=== PATIENT | female | born 1950 | race Caucasian/White ===

== ENCOUNTER 2017-08-20 09:47 | Inpatient (IN) | payer MEDICARE, OTHER ==
[~2017-08-20] VITALS: Ht 157.5 cm; Wt 96.1 kg
[2017-08-20] MEDS ORDERED: etomidate 2mg/ml inj. ONE (10:00)
[2017-08-20] MEDS ORDERED: sod chloride 0.9% 10ml flush syringe IV ONE (10:00)
[2017-08-20] MEDS ORDERED: acetaminophen 325mg tablet PO STA (10:12)
[2017-08-20] MEDS ORDERED: normal saline 1000ML IV soln IV ONE (10:15)
[2017-08-20 10:46] LABS: BASOPHILS % (AUTO) 0.1 % (0-1); EOSINOPHILS # (AUTO) 0.1 X10'3 (0-0.9); EOSINOPHILS % (AUTO) 0.8 % (0-6); HEMOGLOBIN 15.3 g/dl (12.0-16.0); LYMPHOCYTES # (AUTO) 0.7 X10'3 (1.1-4.8); LYMPHOCYTES % (AUTO) 9.7 % (21-51); MEAN CORPUSCULAR HEMOGLOBIN 28.9 PG (27.0-31.0); MEAN CORPUSCULAR VOLUME 84.8 FL (78-98); MEAN PLATELET VOLUME 9.4 FL (7.4-10.4); MONOCYTES # (AUTO) 0.3 X10'3 (0-0.9); MONOCYTES % (AUTO) 3.7 % (2-12); NEUTROPHILS # (AUTO) 6.6 X10'3 (1.8-7.7); NEUTROPHILS % (AUTO) 85.7 % (42-75); PLATELET COUNT 183 X10'3 (140-440); RED CELL DISTRIBUTION WIDTH 15.4 % (11.5-14.5); WHITE BLOOD COUNT 7.7 X10'3 (4.5-11.0)
[2017-08-20 11:08] LABS: INR 0.9 INR; PROTHROMBIN TIME 9.6 SECONDS (9.0-12.0)
[2017-08-20] MEDS ORDERED: albuterol 2.5 MG/3 ML nebule NEB ONE ×2 (11:10→14:25)
[2017-08-20] MEDS ORDERED: ipratropium/albuterol 3ml nebule NEB ONE (11:10)
[2017-08-20 11:13] LABS: TOTAL CELLS COUNTED 100
[2017-08-20 11:14] LABS: PLATELET ESTIMATE NORMAL
[2017-08-20 11:15] LABS: ALANINE AMINOTRANSFERASE 24 U/L (12-78); ALBUMIN 3.5 G/DL (3.4-5.0); ALBUMIN/GLOBULIN RATIO 0.8 (1.1-1.5); ALKALINE PHOSPHATASE 92 IU/L (46-116); ANION GAP 11 (8-16); ASPARTATE AMINO TRANSFERASE 29 U/L (10-37); BILIRUBIN,TOTAL 0.2 MG/DL (0.1-1.0); BLOOD UREA NITROGEN 11 MG/DL (7-18); BUN/CREATININE RATIO 12.2 (6.6-38.0); CHLORIDE 105 MMOL/L (99-107); GLUCOSE 117 MG/DL (70-104); MAGNESIUM 1.7 MG/DL (1.5-2.4); POTASSIUM 4.1 MMOL/L (3.5-5.1); SODIUM 141 MMOL/L (135-145); TOTAL CARBON DIOXIDE 24.7 MMOL/L (24-32); TOTAL PROTEIN 7.8 G/DL (6.4-8.2); eGFR 63 ML/MIN
[2017-08-20 11:21] LABS: CLARITY,URINE CLOUDY (Clear); COLOR,URINE YELLOW (Yellow); GLUCOSE, URINE NEGATIVE (Neg); KETONES,URINE NEGATIVE (Neg); LEUKOCYTE ESTERASE ,URINE NEGATIVE (Neg); NITRITES, URINE NEGATIVE (Neg); OCCULT BLOOD,URINE MODERATE (Neg); PROTEIN,URINE 30 mg/dl (Neg); UA COLLECTION TYPE CLN CATCH MIDSTREAM; UROBILINOGEN,URINE 0.2 E.U/dL (0.2-1.0)
[2017-08-20 11:31] LABS: BACTERIA,URINE 1+ /HPF (Neg); SQUAMOUS EPITHELIAL CELL,UR FEW /LPF (FEW); WBC,URINE 0-4 /HPF (0-4)
[2017-08-20] MEDS ORDERED: methylPREDNISolone sod succ 125mg/2ml vial IV ONE (13:05)
[2017-08-20] MEDS ORDERED: oseltamivir phos 75mg capsule PO ONE (13:05)
[2017-08-20] MEDS ORDERED: LISI-600 PO (13:08)
[2017-08-20] MEDS ORDERED: ALBU6.7H INH (13:08)
[2017-08-20] MEDS ORDERED: ATOR10TA87 PO (13:08)
[2017-08-20] MEDS ORDERED: IBUP-1984 PO (13:08)
[2017-08-20] MEDS ORDERED: ASPI-611 PO (13:08)
[2017-08-20] MEDS ORDERED: ASCO500C15 PO (13:08)
[2017-08-20] MEDS ORDERED: EST1T PO (13:08)
[2017-08-20] MEDS ORDERED: LISI-604 PO (13:11)
[2017-08-20] MEDS ORDERED: mag hydrox/Alum hydrox/simeth 30ml oral suspension PO PRN (14:20)
[2017-08-20] MEDS ORDERED: magnesium hydroxide 30ml (MOM) UD suspension PO PRN (14:20)
[2017-08-20] MEDS ORDERED: ondansetron/PF 4mg/2ml inj IV PRN (14:20)
[2017-08-20] MEDS: normal saline 1000ml 1,000 ML IV SCH (14:31)
[2017-08-20] MEDS ORDERED: ipratropium/albuterol 3ml nebule NEB PRN (15:05)
[2017-08-20 17:35] VITALS: BP 159/84
[2017-08-20 18:00] VITALS: BP 136/75
[2017-08-20] MEDS: levoFLOXACIN-Levaquin 750MG/D5 150 ML IV SCH (19:07)
[2017-08-20] MEDS ORDERED: oseltamivir phos 75mg capsule PO SCH (20:00)
[2017-08-20] MEDS ORDERED: temazepam 15mg capsule PO PRN (21:00)
[2017-08-20 21:10] LABS: HEMOGLOBIN A1C 5.6 % (4.5-6.2)
[2017-08-20] MEDS: vancomycin inj 1,250 MG in normal saline 250ml IV soln 250 ML IV SCH (21:28)
[2017-08-20] MEDS: acetaminophen 325mg tablet PO PRN (21:38)
[2017-08-20 22:00] VITALS: BP 146/71
[2017-08-21] VITALS (19 sets, daily range): BP systolic 89–178; BP diastolic 51–92
[2017-08-21] MEDS: acetaminophen 325mg tablet PO PRN (03:35)
[2017-08-21] MEDS: vancomycin inj 1,250 MG in normal saline 250ml IV soln 250 ML IV SCH (05:15)
[2017-08-21] MEDS: normal saline 1000ml 1,000 ML IV SCH ×3 (05:15→19:41)
[2017-08-21 05:56] LABS: BASOPHILS % (AUTO) 0 % (0-1); EOSINOPHILS % (AUTO) 0 % (0-6); HEMATOCRIT 41.1 % (35.0-45.0); HEMOGLOBIN 14.1 g/dl (12.0-16.0); LYMPHOCYTES # (AUTO) 0.7 X10'3 (1.1-4.8); LYMPHOCYTES % (AUTO) 11.3 % (21-51); MEAN CORPUSCULAR HEMOGLOBIN 29.2 PG (27.0-31.0); MEAN CORPUSCULAR HGB CONC 34.2 % (33.0-36.5); MEAN CORPUSCULAR VOLUME 85.3 FL (78-98); MEAN PLATELET VOLUME 9.4 FL (7.4-10.4); MONOCYTES # (AUTO) 0.3 X10'3 (0-0.9); MONOCYTES % (AUTO) 4.7 % (2-12); NEUTROPHILS # (AUTO) 5.4 X10'3 (1.8-7.7); PLATELET COUNT 172 X10'3 (140-440); RED BLOOD COUNT 4.81 X10'6 (4.20-5.60); RED CELL DISTRIBUTION WIDTH 15.2 % (11.5-14.5); WHITE BLOOD COUNT 6.4 X10'3 (4.5-11.0)
[2017-08-21 06:08] LABS: PARTIAL THROMBOPLASTIN TIME 32 SECONDS (22-32); PROTHROMBIN TIME 9.9 SECONDS (9.0-12.0)
[2017-08-21 06:27] LABS: ALANINE AMINOTRANSFERASE 26 U/L (12-78); ALBUMIN 2.9 G/DL (3.4-5.0); ALBUMIN/GLOBULIN RATIO 0.8 (1.1-1.5); ALKALINE PHOSPHATASE 72 IU/L (46-116); ANION GAP 11 (8-16); ASPARTATE AMINO TRANSFERASE 24 U/L (10-37); BILIRUBIN,TOTAL 0.2 MG/DL (0.1-1.0); BLOOD UREA NITROGEN 13 MG/DL (7-18); CALCIUM 8.4 MG/DL (8.5-10.1); CHLORIDE 108 MMOL/L (99-107); CREATININE 0.81 MG/DL (0.40-0.90); GLUCOSE 140 MG/DL (70-104); MAGNESIUM 1.9 MG/DL (1.5-2.4); PHOSPHORUS 3.3 MG/DL (2.3-4.5); SODIUM 145 MMOL/L (135-145); TOTAL CARBON DIOXIDE 25.7 MMOL/L (24-32); TOTAL PROTEIN 6.7 G/DL (6.4-8.2); eGFR 71 ML/MIN
[2017-08-21] MEDS: lisinopril 5mg tablet PO SCH (07:47)
[2017-08-21] MEDS: atorvastatin 10mg tablet PO SCH (07:47)
[2017-08-21] MEDS: aspirin 81mg tablet.DR PO SCH (07:47)
[2017-08-21] MEDS: ascorbic acid 500mg tablet PO SCH (07:48)
[2017-08-21] MEDS: enoxaparin 40mg/0.4ml syringe SUBCUT SCH (07:48)
[2017-08-21] MEDS ORDERED: midazolam 2 mg/2 ml injection ONE (09:40)
[2017-08-21] MEDS ORDERED: propofol 1000mg/100ml bottle 100 ML IV ONE (09:56)
[2017-08-21] MEDS ORDERED: pneumococcal 23-VAL P-sac vacc 25 mcg/0.5ml vial IMVAC ONE (10:00)
[2017-08-21 10:31] LABS: ABG BASE EXCESS -11.5 mmol/L (-2.0-3.0); ABG HCO3 18.5 mmol/L (22.0-26.0); ABG PCO2 (T) 63.2 mmHg (32.0-45.0); ABG PH (T) 7.085 (7.350-7.450); ABG PO2 (T) 164.3 mmHg (83-108); ALLEN'S TEST Positive; FCOHb 0.2 % (0.5-1.5); FMetHb 0.4 % (0.3-1.12); FO2Hb 97.4 % (94-100); TOTAL HEMOGLOBIN 10.8 G/dl (12.0-16.0)
[2017-08-21] MEDS ORDERED: sodium bicarbonate (8.4%) 1 mEq/ml syringe IV STA (10:31)
[2017-08-21] MEDS ORDERED: sodium bicarbonate (8.4%) 1 mEq/ml syringe ONE (10:33)
[2017-08-21] MEDS: levoFLOXACIN-Levaquin 750MG/D5 150 ML IV SCH (10:55)
[2017-08-21] MEDS: ipratropium/albuterol 3ml nebule NEB SCH ×4 (10:56→23:19)
[2017-08-21] MEDS: midazolam 100mg in NS 100ml 100 ML IV PRN ×2 (10:57→22:10)
[2017-08-21] MEDS: FENTANYL-0.9 % NACL/PF 100 ML IV PRN ×3 (10:58→22:07)
[2017-08-21] MEDS ORDERED: normal saline 1000ml 1,000 ML IV ONE (13:15)
[2017-08-21 14:05] LABS: TROPONIN I 0.22 NG/ML (0.0-0.05)
[2017-08-21] MEDS: pantoprazole 40 MG vial IV SCH (14:31)
[2017-08-21] MEDS: methylPREDNISolone sod succ 125mg/2ml vial IV SCH ×2 (14:31→19:39)
[2017-08-21] MEDS ORDERED: albumin (human) 25% 100 ML IV solution IV ONE (15:30)
[2017-08-21 16:01] LABS: ABG HCO3 25.4 mmol/L (22.0-26.0); ABG OXYGEN SATURATION 96.8 % (95-98); ABG PCO2 (T) 43.7 mmHg (32.0-45.0); ABG PH (T) 7.381 (7.350-7.450); ABG PO2 (T) 90.1 mmHg (83-108); ALLEN'S TEST Positive; FCOHb 0.3 % (0.5-1.5); FMetHb 0.1 % (0.3-1.12); FO2Hb 96.4 % (94-100); MINUTE VOLUME 8 L/min; PATIENT TEMPERATURE 36.6; PEEP 5 cm H2O; RESPIRATORY RATE 20 b/min; RESPIRATORY RATE (OBSERVED) 20 b/min; TIDAL VOLUME 400 mL; TOTAL HEMOGLOBIN 13.9 G/dl (12.0-16.0)
[2017-08-21] MEDS: lactobacillus rhamnosus 10,000 MMU CELLS/CAPSULE PO SCH (18:04)
[2017-08-21] MEDS ORDERED: vancomycin inj 1,250 MG in normal saline 250ml IV soln 250 ML IV SCH (20:00)
[2017-08-22] VITALS (23 sets, daily range): BP systolic 90–131; BP diastolic 50–95
[2017-08-22 01:15] LABS: BASOPHILS % (AUTO) 0 % (0-1); EOSINOPHILS % (AUTO) 0 % (0-6); HEMATOCRIT 37.2 % (35.0-45.0); HEMOGLOBIN 12.7 g/dl (12.0-16.0); LYMPHOCYTES # (AUTO) 0.5 X10'3 (1.1-4.8); LYMPHOCYTES % (AUTO) 4.2 % (21-51); MEAN CORPUSCULAR HEMOGLOBIN 29.2 PG (27.0-31.0); MEAN CORPUSCULAR HGB CONC 34.2 % (33.0-36.5); MEAN CORPUSCULAR VOLUME 85.5 FL (78-98); MEAN PLATELET VOLUME 9.7 FL (7.4-10.4); MONOCYTES # (AUTO) 0.4 X10'3 (0-0.9); MONOCYTES % (AUTO) 3.4 % (2-12); NEUTROPHILS # (AUTO) 10.7 X10'3 (1.8-7.7); NEUTROPHILS % (AUTO) 92.4 % (42-75); PLATELET COUNT 166 X10'3 (140-440); RED BLOOD COUNT 4.36 X10'6 (4.20-5.60); RED CELL DISTRIBUTION WIDTH 14.4 % (11.5-14.5); WHITE BLOOD COUNT 11.6 X10'3 (4.5-11.0)
[2017-08-22 01:36] LABS: ALANINE AMINOTRANSFERASE 25 U/L (12-78); ALBUMIN/GLOBULIN RATIO 0.9 (1.1-1.5); ALKALINE PHOSPHATASE 58 IU/L (46-116); ANION GAP 11 (8-16); ASPARTATE AMINO TRANSFERASE 27 U/L (10-37); BILIRUBIN,TOTAL 0.3 MG/DL (0.1-1.0); BLOOD UREA NITROGEN 19 MG/DL (7-18); BUN/CREATININE RATIO 17.9 (6.6-38.0); CALCIUM 7.6 MG/DL (8.5-10.1); CHLORIDE 112 MMOL/L (99-107); CREATININE 1.06 MG/DL (0.40-0.90); GLUCOSE 172 MG/DL (70-104); MAGNESIUM 1.7 MG/DL (1.5-2.4); PHOSPHORUS 3.4 MG/DL (2.3-4.5); POTASSIUM 3.5 MMOL/L (3.5-5.1); SODIUM 148 MMOL/L (135-145); TOTAL CARBON DIOXIDE 24.9 MMOL/L (24-32); TOTAL PROTEIN 6.2 G/DL (6.4-8.2); eGFR 52 ML/MIN
[2017-08-22 01:43] LABS: TROPONIN I 0.55 NG/ML (0.0-0.05)
[2017-08-22] MEDS: methylPREDNISolone sod succ 125mg/2ml vial IV SCH ×4 (02:33→19:45)
[2017-08-22] MEDS: FENTANYL-0.9 % NACL/PF 100 ML IV PRN ×2 (02:34→15:07)
[2017-08-22] MEDS ORDERED: dextrose 5%-water 1,000 ML IV SCH (02:43)
[2017-08-22] MEDS: ipratropium/albuterol 3ml nebule NEB SCH ×6 (03:15→23:09)
[2017-08-22 04:06] LABS: ABG BASE EXCESS -3.2 mmol/L (-2.0-3.0); ABG HCO3 23.6 mmol/L (22.0-26.0); ABG OXYGEN SATURATION 94.1 % (95-98); ABG PCO2 (T) 48.9 mmHg (32.0-45.0); ABG PH (T) 7.301 (7.350-7.450); ABG PO2 (T) 75.9 mmHg (83-108); ALLEN'S TEST Positive; FCOHb 0.3 % (0.5-1.5); FMetHb 0.2 % (0.3-1.12); FO2Hb 93.6 % (94-100); MINUTE VOLUME 9 L/min; PATIENT TEMPERATURE 36.8; PEEP 5 cm H2O; RESPIRATORY RATE 20 b/min; RESPIRATORY RATE (OBSERVED) 21 b/min; TIDAL VOLUME 400 mL; TOTAL HEMOGLOBIN 13.4 G/dl (12.0-16.0)
[2017-08-22 05:30] LABS: PARTIAL THROMBOPLASTIN TIME 30 SECONDS (22-32)
[2017-08-22] MEDS ORDERED: VANCOMYCIN LEVEL IV NR (05:30)
[2017-08-22] MEDS ORDERED: VANCOMYCIN LEVEL IV ONE (07:30)
[2017-08-22] MEDS: lisinopril 5mg tablet PO SCH (08:00)
[2017-08-22] MEDS: aspirin 81mg tablet.DR PO SCH (08:37)
[2017-08-22] MEDS: atorvastatin 10mg tablet PO SCH (08:37)
[2017-08-22] MEDS: pantoprazole 40 MG vial IV SCH (08:37)
[2017-08-22] MEDS: levoFLOXACIN-Levaquin 750MG/D5 150 ML IV SCH (08:37)
[2017-08-22] MEDS: lactobacillus rhamnosus 10,000 MMU CELLS/CAPSULE PO SCH ×2 (08:37→17:33)
[2017-08-22] MEDS: ascorbic acid 500mg tablet PO SCH (08:37)
[2017-08-22] MEDS: enoxaparin 40mg/0.4ml syringe SUBCUT SCH (08:38)
[2017-08-22] MEDS ORDERED: glucagon, human recombinant 1mg kit SUBCUT PRN (11:20)
[2017-08-22] MEDS ORDERED: dextrose 50%-water 50ml dispensing syringe IV PRN ×2 (11:20)
[2017-08-22] MEDS ORDERED: MESSAGE TO PHARMACY PO ONE (11:20)
[2017-08-22] MEDS ORDERED: dextrose ORAL solution 15 GM/59 ML bottle PO PRN ×2 (11:20)
[2017-08-22] MEDS: dexmedetomidin/NS 400mcg/100ml 100 ML IV SCH (15:01)
[2017-08-22] MEDS: mineral oil/petrolatum ophthal oint EACHEYE SCH ×2 (15:02→19:45)
[2017-08-22] MEDS: acetaminophen 325mg tablet PO PRN (19:17)
[2017-08-22 21:05] LABS: COLOR,URINE YELLOW (Yellow); GLUCOSE, URINE NEGATIVE (Neg); KETONES,URINE NEGATIVE (Neg); LEUKOCYTE ESTERASE ,URINE NEGATIVE (Neg); NITRITES, URINE NEGATIVE (Neg); OCCULT BLOOD,URINE LARGE (Neg); PROTEIN,URINE 30 mg/dl (Neg); UROBILINOGEN,URINE 0.2 E.U/dL (0.2-1.0)
[2017-08-22 21:08] LABS: UA COLLECTION TYPE FOLEY CATH
[2017-08-22 21:09] LABS: CLARITY,URINE SLIGHTLY CLOUDY (Clear)
[2017-08-22 21:12] LABS: BACTERIA,URINE FEW /HPF (Neg); RBC,URINE 50-100 /HPF (0-2); WBC,URINE NONE SEEN /HPF (0-4)
[2017-08-22 21:13] LABS: AMORPHOUS URATES 4+; HYALINE CASTS 0-3 /LPF (NEGATIVE); MUCUS STRANDS NONE SEEN /LPF (Neg); SQUAMOUS EPITHELIAL CELL,UR FEW /LPF (FEW); TRANSITIONAL EPI CELLS,URINE FEW /HPF
[2017-08-22 21:14] LABS: FINE GRANULAR CAST 0-3 /LPF (NEGATIVE)
[2017-08-22] MEDS: insulin glargine (Lantus) pen - multi-dose SQ SCH (21:42)
[2017-08-22] MEDS: insulin regular, human vial - multi-dose SQ SCH (21:44)
[2017-08-22] MEDS ORDERED: furosemide 40mg/4ml inj IV ONE (23:10)
[2017-08-22] MEDS: sodium chloride 0.45% 1,000 ML IV SCH (23:14)
[2017-08-23] VITALS (22 sets, daily range): BP systolic 111–157; BP diastolic 60–85
[2017-08-23] MEDS: mineral oil/petrolatum ophthal oint EACHEYE SCH ×4 (01:14→20:00)
[2017-08-23] MEDS: methylPREDNISolone sod succ 125mg/2ml vial IV SCH ×4 (01:18→20:11)
[2017-08-23] MEDS: insulin regular, human vial - multi-dose SQ SCH ×3 (03:03→20:32)
[2017-08-23] MEDS: ipratropium/albuterol 3ml nebule NEB SCH ×6 (03:20→22:56)
[2017-08-23 03:37] LABS: ABG BASE EXCESS 0.5 mmol/L (-2.0-3.0); ABG HCO3 25.9 mmol/L (22.0-26.0); ABG OXYGEN SATURATION 95.6 % (95-98); ABG PCO2 (T) 45.2 mmHg (32.0-45.0); ABG PH (T) 7.377 (7.350-7.450); ABG PO2 (T) 82.1 mmHg (83-108); ALLEN'S TEST Positive; FCOHb 0.3 % (0.5-1.5); FMetHb 0.3 % (0.3-1.12); MINUTE VOLUME 14 L/min; PATIENT TEMPERATURE 37.2; PEEP 5 cm H2O; RESPIRATORY RATE 20 b/min; RESPIRATORY RATE (OBSERVED) 28 b/min; TIDAL VOLUME 400 mL
[2017-08-23] MEDS: dexmedetomidin/NS 400mcg/100ml 100 ML IV SCH ×3 (04:08→23:15)
[2017-08-23 05:20] LABS: BASOPHILS % (AUTO) 0 % (0-1); EOSINOPHILS # (AUTO) 0.1 X10'3 (0-0.9); EOSINOPHILS % (AUTO) 0.4 % (0-6); HEMATOCRIT 36.5 % (35.0-45.0); HEMOGLOBIN 12.2 g/dl (12.0-16.0); LYMPHOCYTES # (AUTO) 0.5 X10'3 (1.1-4.8); LYMPHOCYTES % (AUTO) 4.2 % (21-51); MEAN CORPUSCULAR HEMOGLOBIN 28.7 PG (27.0-31.0); MEAN CORPUSCULAR HGB CONC 33.3 % (33.0-36.5); MEAN CORPUSCULAR VOLUME 86.2 FL (78-98); MEAN PLATELET VOLUME 9.7 FL (7.4-10.4); MONOCYTES # (AUTO) 0.5 X10'3 (0-0.9); MONOCYTES % (AUTO) 4.1 % (2-12); NEUTROPHILS # (AUTO) 11.1 X10'3 (1.8-7.7); NEUTROPHILS % (AUTO) 91.3 % (42-75); PLATELET COUNT 173 X10'3 (140-440); RED BLOOD COUNT 4.24 X10'6 (4.20-5.60); RED CELL DISTRIBUTION WIDTH 15.9 % (11.5-14.5); WHITE BLOOD COUNT 12.1 X10'3 (4.5-11.0)
[2017-08-23 05:24] LABS: INR 0.9 INR; PARTIAL THROMBOPLASTIN TIME 30 SECONDS (22-32); PROTHROMBIN TIME 9.8 SECONDS (9.0-12.0)
[2017-08-23 05:30] LABS: ALANINE AMINOTRANSFERASE 22 U/L (12-78); ALBUMIN 2.8 G/DL (3.4-5.0); ALBUMIN/GLOBULIN RATIO 0.8 (1.1-1.5); ALKALINE PHOSPHATASE 58 IU/L (46-116); ANION GAP 10 (8-16); ASPARTATE AMINO TRANSFERASE 23 U/L (10-37); BILIRUBIN,TOTAL 0.3 MG/DL (0.1-1.0); CALCIUM 8.1 MG/DL (8.5-10.1); CHLORIDE 107 MMOL/L (99-107); CREATININE 1.15 MG/DL (0.40-0.90); GLUCOSE 191 MG/DL (70-104); PHOSPHORUS 2.3 MG/DL (2.3-4.5); SODIUM 144 MMOL/L (135-145); TOTAL CARBON DIOXIDE 26.8 MMOL/L (24-32); TOTAL PROTEIN 6.2 G/DL (6.4-8.2); eGFR 47 ML/MIN
[2017-08-23 05:56] LABS: BLOOD UREA NITROGEN 25 MG/DL (7-18); BUN/CREATININE RATIO 21.7 (6.6-38.0)
[2017-08-23 06:27] LABS: POTASSIUM 2.9 MMOL/L (3.5-5.1)
[2017-08-23] MEDS ORDERED: potassium Cl 20 mEq SR tablet PO PRN ×2 (06:30)
[2017-08-23] MEDS ORDERED: potassium Cl 40MEQ/NS 500ml 500 ML IV PRN (06:30)
[2017-08-23] MEDS ORDERED: magnesium 2GM in 50ml NS 50 ML IV PRN (06:30)
[2017-08-23] MEDS ORDERED: potassium Cl 40MEQ/250ML bag 250 ML IV PRN ×2 (06:30)
[2017-08-23] MEDS ORDERED: magnesium Cl slow-release 64mg tablet PO PRN (06:30)
[2017-08-23] MEDS ORDERED: magnesium 4gm in 100ml NS 100 ML IV PRN (06:30)
[2017-08-23] MEDS: potassium Cl 40MEQ/NS 500ml 500 ML IV PRN ×2 (07:28→11:45)
[2017-08-23] MEDS: K and/or MAG REPLACEMENT MC SCH (08:00)
[2017-08-23] MEDS: enoxaparin 40mg/0.4ml syringe SUBCUT SCH (08:05)
[2017-08-23] MEDS: pantoprazole 40 MG vial IV SCH (08:05)
[2017-08-23] MEDS: lactobacillus rhamnosus 10,000 MMU CELLS/CAPSULE PO SCH ×2 (08:06→20:10)
[2017-08-23] MEDS: aspirin 81mg tablet.DR PO SCH (08:06)
[2017-08-23] MEDS: ascorbic acid 500mg tablet PO SCH (08:06)
[2017-08-23] MEDS: atorvastatin 10mg tablet PO SCH (08:06)
[2017-08-23] MEDS: lisinopril 5mg tablet PO SCH (08:08)
[2017-08-23] MEDS: levoFLOXACIN-Levaquin 750MG/D5 150 ML IV SCH (08:23)
[2017-08-23] MEDS ORDERED: methylnaltrexone br 12mg/0.6ml inj***SubQ only SQ ONE (11:15)
[2017-08-23] MEDS ORDERED: docusate sod 100mg capsule PO SCH (11:20)
[2017-08-23] MEDS ORDERED: bisacodyl 10mg suppository rectal RC PRN (11:20)
[2017-08-23] MEDS: docusate sodium 100mg/10ml UD cup PO SCH (12:17)
[2017-08-23] MEDS: sodium chloride 0.45% 1,000 ML IV SCH (19:06)
[2017-08-23] MEDS: insulin glargine (Lantus) pen - multi-dose SQ SCH (20:32)
[2017-08-24] VITALS (24 sets, daily range): BP systolic 79–196; BP diastolic 47–128
[2017-08-24] MEDS ORDERED: VANCOMYCIN LEVEL IV ONE (00:30)
[2017-08-24] MEDS: sodium chloride 0.45% 1,000 ML IV SCH (01:43)
[2017-08-24] MEDS: mineral oil/petrolatum ophthal oint EACHEYE SCH ×4 (01:45→20:37)
[2017-08-24] MEDS: methylPREDNISolone sod succ 125mg/2ml vial IV SCH ×4 (01:45→20:37)
[2017-08-24 01:54] LABS: BASOPHILS % (AUTO) 0.3 % (0-1); EOSINOPHILS % (AUTO) 0 % (0-6); HEMATOCRIT 36.4 % (35.0-45.0); HEMOGLOBIN 12.2 g/dl (12.0-16.0); LYMPHOCYTES # (AUTO) 0.6 X10'3 (1.1-4.8); LYMPHOCYTES % (AUTO) 4.9 % (21-51); MEAN CORPUSCULAR HEMOGLOBIN 28.8 PG (27.0-31.0); MEAN CORPUSCULAR HGB CONC 33.4 % (33.0-36.5); MEAN PLATELET VOLUME 10.2 FL (7.4-10.4); MONOCYTES # (AUTO) 0.7 X10'3 (0-0.9); MONOCYTES % (AUTO) 5.7 % (2-12); NEUTROPHILS # (AUTO) 11.6 X10'3 (1.8-7.7); NEUTROPHILS % (AUTO) 89.1 % (42-75); PLATELET COUNT 177 X10'3 (140-440); RED BLOOD COUNT 4.24 X10'6 (4.20-5.60); RED CELL DISTRIBUTION WIDTH 14.7 % (11.5-14.5); WHITE BLOOD COUNT 12.9 X10'3 (4.5-11.0)
[2017-08-24 02:03] LABS: INR 0.9 INR; PROTHROMBIN TIME 9.7 SECONDS (9.0-12.0)
[2017-08-24 02:09] LABS: ALANINE AMINOTRANSFERASE 33 U/L (12-78); ALBUMIN 2.6 G/DL (3.4-5.0); ALBUMIN/GLOBULIN RATIO 0.8 (1.1-1.5); ALKALINE PHOSPHATASE 58 IU/L (46-116); ANION GAP 8 (8-16); ASPARTATE AMINO TRANSFERASE 38 U/L (10-37); BILIRUBIN,TOTAL 0.3 MG/DL (0.1-1.0); BLOOD UREA NITROGEN 25 MG/DL (7-18); BUN/CREATININE RATIO 27.2 (6.6-38.0); CALCIUM 8.2 MG/DL (8.5-10.1); CHLORIDE 108 MMOL/L (99-107); CREATININE 0.92 MG/DL (0.40-0.90); GLUCOSE 172 MG/DL (70-104); MAGNESIUM 2.2 MG/DL (1.5-2.4); PHOSPHORUS 2.6 MG/DL (2.3-4.5); POTASSIUM 3.6 MMOL/L (3.5-5.1); PREALBUMIN 16.5 MG/DL (19-36); SODIUM 141 MMOL/L (135-145); TOTAL CARBON DIOXIDE 24.8 MMOL/L (24-32); TOTAL PROTEIN 5.8 G/DL (6.4-8.2); eGFR 61 ML/MIN
[2017-08-24 02:11] LABS: VANCOMYCIN,TROUGH 24.1 UG/ML (6.0-14.0)
[2017-08-24] MEDS: insulin regular, human vial - multi-dose SQ SCH ×2 (02:20→21:05)
[2017-08-24] MEDS: ipratropium/albuterol 3ml nebule NEB SCH ×5 (02:58→20:31)
[2017-08-24 03:16] LABS: ABG HCO3 23.9 mmol/L (22.0-26.0); ABG OXYGEN SATURATION 95.2 % (95-98); ABG PH (T) 7.392 (7.350-7.450); ABG PO2 (T) 77.8 mmHg (83-108); ALLEN'S TEST Positive; FCOHb 0.3 % (0.5-1.5); FMetHb 0.1 % (0.3-1.12); FO2Hb 94.8 % (94-100); MINUTE VOLUME 12 L/min; PATIENT TEMPERATURE 36.8; PEEP 5 cm H2O; RESPIRATORY RATE (OBSERVED) 28 b/min
[2017-08-24] MEDS: levoFLOXACIN-Levaquin 750MG/D5 150 ML IV SCH (07:55)
[2017-08-24] MEDS: lactobacillus rhamnosus 10,000 MMU CELLS/CAPSULE PO SCH ×2 (07:55→17:30)
[2017-08-24] MEDS: docusate sodium 100mg/10ml UD cup PO SCH ×2 (08:00→20:00)
[2017-08-24] MEDS: K and/or MAG REPLACEMENT MC SCH (08:00)
[2017-08-24] MEDS: pantoprazole 40 MG vial IV SCH (08:01)
[2017-08-24] MEDS: aspirin 81mg tablet.DR PO SCH (08:05)
[2017-08-24] MEDS: atorvastatin 10mg tablet PO SCH (08:05)
[2017-08-24] MEDS: enoxaparin 40mg/0.4ml syringe SUBCUT SCH (08:05)
[2017-08-24] MEDS: ascorbic acid 500mg tablet PO SCH (08:06)
[2017-08-24] MEDS: lisinopril 5mg tablet PO SCH (08:06)
[2017-08-24] MEDS: vancomycin inj 1,250 MG in normal saline 250ml IV soln 250 ML IV SCH ×2 (09:00→20:37)
[2017-08-24] MEDS ORDERED: ipratropium/albuterol 3ml nebule NEB PRN (09:40)
[2017-08-24] MEDS ORDERED: racepinephrine 11.25mg/0.5ml nebule NEB PRN (09:40)
[2017-08-24] MEDS ORDERED: pneumococcal 23-VAL P-sac vacc 25 mcg/0.5ml vial IMVAC ONE (11:50)
[2017-08-24] MEDS ORDERED: DIAZ5TAB PO (14:11)
[2017-08-24] MEDS: LORazepam 1 MG tablet PO PRN (14:41)
[2017-08-24] MEDS: dexmedetomidin/NS 400mcg/100ml 100 ML IV SCH (15:18)
[2017-08-24] MEDS ORDERED: morphine 4 MG/ML inj SYRINge IV ONE (15:35)
[2017-08-24] MEDS ORDERED: MIDAZolam 5mg/ml 2ml vial ONE (15:59)
[2017-08-24] MEDS ORDERED: MIDAZolam 5mg/ml 2ml vial IV ONE (17:00)
[2017-08-24] MEDS ORDERED: etomidate 2mg/ml inj. IV ONE (17:00)
[2017-08-24 17:21] LABS: ABG BASE EXCESS -4.9 mmol/L (-2.0-3.0); ABG HCO3 23.2 mmol/L (22.0-26.0); ABG OXYGEN SATURATION 96.5 % (95-98); ABG PCO2 (T) 56.3 mmHg (32.0-45.0); ABG PH (T) 7.233 (7.350-7.450); ABG PO2 (T) 103.8 mmHg (83-108); ALLEN'S TEST Positive; FCOHb 0.3 % (0.5-1.5); FMetHb 0.3 % (0.3-1.12); FO2Hb 95.9 % (94-100); MINUTE VOLUME 13 L/min; PEEP 5 cm H2O; RESPIRATORY RATE 18 b/min; TIDAL VOLUME 400 mL; TOTAL HEMOGLOBIN 13.5 G/dl (12.0-16.0)
[2017-08-24] MEDS ORDERED: normal saline 1000ml 1,000 ML IV ONE (17:45)
[2017-08-24] MEDS: insulin glargine (Lantus) pen - multi-dose SQ SCH ×2 (21:00→21:42)
[2017-08-25] VITALS (24 sets, daily range): BP systolic 104–152; BP diastolic 59–110
[2017-08-25] MEDS: insulin regular, human vial - multi-dose SQ SCH ×4 (02:08→21:08)
[2017-08-25] MEDS: mineral oil/petrolatum ophthal oint EACHEYE SCH ×4 (02:10→14:50)
[2017-08-25] MEDS: methylPREDNISolone sod succ 125mg/2ml vial IV SCH ×2 (02:11→07:19)
[2017-08-25] MEDS: ipratropium/albuterol 3ml nebule NEB SCH ×4 (02:34→20:30)
[2017-08-25 04:06] LABS: ABG BASE EXCESS -2.5 mmol/L (-2.0-3.0); ABG HCO3 23.7 mmol/L (22.0-26.0); ABG OXYGEN SATURATION 96.9 % (95-98); ABG PCO2 (T) 46.5 mmHg (32.0-45.0); ABG PH (T) 7.326 (7.350-7.450); ALLEN'S TEST Positive; FCOHb 0.3 % (0.5-1.5); FMetHb 0.2 % (0.3-1.12); FO2Hb 96.4 % (94-100); MINUTE VOLUME 11 L/min; PEEP 5 cm H2O; RESPIRATORY RATE 18 b/min; RESPIRATORY RATE (OBSERVED) 27 b/min; TIDAL VOLUME 400 mL; TOTAL HEMOGLOBIN 13.1 G/dl (12.0-16.0)
[2017-08-25 06:49] LABS: BASOPHILS % (AUTO) 0 % (0-1); EOSINOPHILS % (AUTO) 0 % (0-6); HEMATOCRIT 36.5 % (35.0-45.0); HEMOGLOBIN 12.2 g/dl (12.0-16.0); LYMPHOCYTES # (AUTO) 0.8 X10'3 (1.1-4.8); LYMPHOCYTES % (AUTO) 4.8 % (21-51); MEAN CORPUSCULAR HEMOGLOBIN 28.9 PG (27.0-31.0); MEAN CORPUSCULAR HGB CONC 33.5 % (33.0-36.5); MEAN CORPUSCULAR VOLUME 86.1 FL (78-98); MEAN PLATELET VOLUME 9.9 FL (7.4-10.4); MONOCYTES % (AUTO) 5.9 % (2-12); NEUTROPHILS # (AUTO) 14.4 X10'3 (1.8-7.7); NEUTROPHILS % (AUTO) 89.3 % (42-75); PLATELET COUNT 179 X10'3 (140-440); RED BLOOD COUNT 4.24 X10'6 (4.20-5.60); RED CELL DISTRIBUTION WIDTH 15.8 % (11.5-14.5); WHITE BLOOD COUNT 16.1 X10'3 (4.5-11.0)
[2017-08-25 07:14] LABS: ALANINE AMINOTRANSFERASE 39 U/L (12-78); ALBUMIN 2.4 G/DL (3.4-5.0); ALBUMIN/GLOBULIN RATIO 0.8 (1.1-1.5); ALKALINE PHOSPHATASE 60 IU/L (46-116); ANION GAP 10 (8-16); ASPARTATE AMINO TRANSFERASE 38 U/L (10-37); BILIRUBIN,TOTAL 0.3 MG/DL (0.1-1.0); BLOOD UREA NITROGEN 33 MG/DL (7-18); CALCIUM 8.4 MG/DL (8.5-10.1); CHLORIDE 111 MMOL/L (99-107); CREATININE 1.03 MG/DL (0.40-0.90); GLUCOSE 159 MG/DL (70-104); MAGNESIUM 2.4 MG/DL (1.5-2.4); PHOSPHORUS 3.7 MG/DL (2.3-4.5); POTASSIUM 4.6 MMOL/L (3.5-5.1); SODIUM 146 MMOL/L (135-145); TOTAL CARBON DIOXIDE 25.5 MMOL/L (24-32); TOTAL PROTEIN 5.6 G/DL (6.4-8.2); eGFR 54 ML/MIN
[2017-08-25] MEDS: pantoprazole 40 MG vial IV SCH (07:19)
[2017-08-25] MEDS: sodium chloride 0.45% 1,000 ML IV SCH ×2 (07:19→21:22)
[2017-08-25] MEDS: aspirin 81mg tablet.DR PO SCH (07:20)
[2017-08-25] MEDS: lisinopril 5mg tablet PO SCH (07:20)
[2017-08-25] MEDS: atorvastatin 10mg tablet PO SCH (07:20)
[2017-08-25] MEDS: ascorbic acid 500mg tablet PO SCH (07:20)
[2017-08-25] MEDS: enoxaparin 40mg/0.4ml syringe SUBCUT SCH (07:20)
[2017-08-25] MEDS: docusate sodium 100mg/10ml UD cup PO SCH ×2 (07:20→21:03)
[2017-08-25] MEDS: lactobacillus rhamnosus 10,000 MMU CELLS/CAPSULE PO SCH ×2 (07:20→21:04)
[2017-08-25] MEDS: methylPREDNISolone sod succ/PF 40mg inj. IV SCH ×3 (08:00→21:04)
[2017-08-25] MEDS: K and/or MAG REPLACEMENT MC SCH (08:00)
[2017-08-25] MEDS: vancomycin inj 1,250 MG in normal saline 250ml IV soln 250 ML IV SCH ×2 (09:38→21:04)
[2017-08-25] MEDS: dexmedetomidin/NS 400mcg/100ml 100 ML IV SCH ×3 (10:59→22:21)
[2017-08-25] MEDS: acetaminophen 325mg tablet PO PRN (14:43)
[2017-08-25] MEDS: FENTANYL-0.9 % NACL/PF 100 ML IV PRN (19:32)
[2017-08-25] MEDS: midazolam 100mg in NS 100ml 100 ML IV PRN (19:33)
[2017-08-25] MEDS: insulin glargine (Lantus) pen - multi-dose SQ SCH (21:09)
[2017-08-25] MEDS ORDERED: furosemide 40mg/4ml inj IV ONE (21:15)
[2017-08-26] VITALS (24 sets, daily range): BP systolic 117–159; BP diastolic 65–80
[2017-08-26] MEDS: mineral oil/petrolatum ophthal oint EACHEYE SCH ×4 (02:19→19:55)
[2017-08-26] MEDS: methylPREDNISolone sod succ/PF 40mg inj. IV SCH ×4 (02:19→19:55)
[2017-08-26] MEDS: insulin regular, human vial - multi-dose SQ SCH ×4 (02:21→20:09)
[2017-08-26] MEDS: ipratropium/albuterol 3ml nebule NEB SCH ×4 (02:29→20:38)
[2017-08-26 03:20] LABS: ABG BASE EXCESS 2.9 mmol/L (-2.0-3.0); ABG HCO3 27.4 mmol/L (22.0-26.0); ABG OXYGEN SATURATION 93.9 % (95-98); ABG PCO2 (T) 42.1 mmHg (32.0-45.0); ABG PH (T) 7.432 (7.350-7.450); ABG PO2 (T) 74.3 mmHg (83-108); ALLEN'S TEST Positive; FCOHb 0.1 % (0.5-1.5); FMetHb 0.2 % (0.3-1.12); FO2Hb 93.6 % (94-100); MINUTE VOLUME 12 L/min; PATIENT TEMPERATURE 37.3; PEEP 5 cm H2O; RESPIRATORY RATE 18 b/min; RESPIRATORY RATE (OBSERVED) 27 b/min; TIDAL VOLUME 400 mL; TOTAL HEMOGLOBIN 13.2 G/dl (12.0-16.0)
[2017-08-26] MEDS: dexmedetomidin/NS 400mcg/100ml 100 ML IV SCH ×2 (04:28→17:56)
[2017-08-26 07:31] LABS: BASOPHILS % (AUTO) 0 % (0-1); EOSINOPHILS % (AUTO) 0 % (0-6); HEMATOCRIT 36.7 % (35.0-45.0); HEMOGLOBIN 12.4 g/dl (12.0-16.0); LYMPHOCYTES # (AUTO) 0.7 X10'3 (1.1-4.8); LYMPHOCYTES % (AUTO) 4.6 % (21-51); MEAN CORPUSCULAR HEMOGLOBIN 28.8 PG (27.0-31.0); MEAN CORPUSCULAR HGB CONC 33.8 % (33.0-36.5); MEAN CORPUSCULAR VOLUME 85.1 FL (78-98); MEAN PLATELET VOLUME 9.7 FL (7.4-10.4); MONOCYTES # (AUTO) 0.7 X10'3 (0-0.9); MONOCYTES % (AUTO) 4.9 % (2-12); NEUTROPHILS # (AUTO) 13.4 X10'3 (1.8-7.7); NEUTROPHILS % (AUTO) 90.5 % (42-75); PLATELET COUNT 217 X10'3 (140-440); RED BLOOD COUNT 4.32 X10'6 (4.20-5.60); RED CELL DISTRIBUTION WIDTH 15.7 % (11.5-14.5); WHITE BLOOD COUNT 14.8 X10'3 (4.5-11.0)
[2017-08-26 07:51] LABS: ALANINE AMINOTRANSFERASE 52 U/L (12-78); ALBUMIN 2.4 G/DL (3.4-5.0); ALBUMIN/GLOBULIN RATIO 0.7 (1.1-1.5); ALKALINE PHOSPHATASE 60 IU/L (46-116); ANION GAP 10 (8-16); ASPARTATE AMINO TRANSFERASE 26 U/L (10-37); BILIRUBIN,TOTAL 0.3 MG/DL (0.1-1.0); BLOOD UREA NITROGEN 40 MG/DL (7-18); BUN/CREATININE RATIO 44.9 (6.6-38.0); CALCIUM 8.8 MG/DL (8.5-10.1); CHLORIDE 109 MMOL/L (99-107); CREATININE 0.89 MG/DL (0.40-0.90); GLUCOSE 200 MG/DL (70-104); MAGNESIUM 2.1 MG/DL (1.5-2.4); POTASSIUM 4.1 MMOL/L (3.5-5.1); SODIUM 145 MMOL/L (135-145); TOTAL CARBON DIOXIDE 26.3 MMOL/L (24-32); TOTAL PROTEIN 5.7 G/DL (6.4-8.2); eGFR 64 ML/MIN
[2017-08-26] MEDS ORDERED: levoFLOXACIN 750MG TABLET PO SCH (08:00)
[2017-08-26] MEDS: pantoprazole 40 MG vial IV SCH (08:00)
[2017-08-26] MEDS ORDERED: VANCOMYCIN LEVEL IV ONE (08:30)
[2017-08-26] MEDS: LEVOFLOXACIN IV SCH (08:33)
[2017-08-26] MEDS: [UNRECOGNIZED DRUG - OTHER] IV SCH (08:33)
[2017-08-26] MEDS: docusate sodium 100mg/10ml UD cup PO SCH ×2 (08:34→19:55)
[2017-08-26] MEDS: enoxaparin 40mg/0.4ml syringe SUBCUT SCH (08:34)
[2017-08-26] MEDS: lactobacillus rhamnosus 10,000 MMU CELLS/CAPSULE PO SCH ×2 (08:34→19:55)
[2017-08-26] MEDS: lisinopril 5mg tablet PO SCH (08:35)
[2017-08-26] MEDS: ascorbic acid 500mg tablet PO SCH (08:35)
[2017-08-26] MEDS: atorvastatin 10mg tablet PO SCH (08:35)
[2017-08-26] MEDS: aspirin 81mg tablet.DR PO SCH (08:35)
[2017-08-26] MEDS: vancomycin inj 1,250 MG in normal saline 250ml IV soln 250 ML IV SCH (09:00)
[2017-08-26] MEDS: sodium chloride 0.45% 1,000 ML IV SCH (20:03)
[2017-08-26] MEDS: insulin glargine (Lantus) pen - multi-dose SQ SCH (20:31)
[2017-08-26] MEDS: vancomycin/NS 1 GM ADD-VANTAGE 250 ML IV SCH (20:32)
[2017-08-27] VITALS (24 sets, daily range): BP systolic 109–158; BP diastolic 70–78
[2017-08-27] MEDS: dexmedetomidin/NS 400mcg/100ml 100 ML IV SCH ×4 (00:01→21:11)
[2017-08-27] MEDS: midazolam 100mg in NS 100ml 100 ML IV PRN (01:09)
[2017-08-27] MEDS: methylPREDNISolone sod succ/PF 40mg inj. IV SCH ×4 (02:17→21:07)
[2017-08-27] MEDS: mineral oil/petrolatum ophthal oint EACHEYE SCH ×4 (02:17→22:29)
[2017-08-27] MEDS: insulin regular, human vial - multi-dose SQ SCH ×4 (02:23→21:17)
[2017-08-27] MEDS: ipratropium/albuterol 3ml nebule NEB SCH ×4 (02:31→20:30)
[2017-08-27 04:10] LABS: ABG BASE EXCESS -0.8 mmol/L (-2.0-3.0); ABG HCO3 23.9 mmol/L (22.0-26.0); ABG OXYGEN SATURATION 94.5 % (95-98); ABG PCO2 (T) 40.2 mmHg (32.0-45.0); ABG PH (T) 7.394 (7.350-7.450); ABG PO2 (T) 78.4 mmHg (83-108); ALLEN'S TEST Positive; FCOHb 0.3 % (0.5-1.5); FMetHb 0.1 % (0.3-1.12); FO2Hb 94.1 % (94-100); MINUTE VOLUME 13 L/min; PATIENT TEMPERATURE 37.1; PEEP 5 cm H2O; RESPIRATORY RATE 18 b/min; RESPIRATORY RATE (OBSERVED) 30 b/min; TIDAL VOLUME 400 mL; TOTAL HEMOGLOBIN 12.8 G/dl (12.0-16.0)
[2017-08-27 06:16] LABS: BASOPHILS % (AUTO) 0.1 % (0-1); EOSINOPHILS % (AUTO) 0 % (0-6); HEMATOCRIT 36.2 % (35.0-45.0); HEMOGLOBIN 12.2 g/dl (12.0-16.0); LYMPHOCYTES # (AUTO) 0.5 X10'3 (1.1-4.8); MEAN CORPUSCULAR HEMOGLOBIN 28.8 PG (27.0-31.0); MEAN CORPUSCULAR HGB CONC 33.6 % (33.0-36.5); MEAN CORPUSCULAR VOLUME 85.8 FL (78-98); MEAN PLATELET VOLUME 9.9 FL (7.4-10.4); MONOCYTES # (AUTO) 0.7 X10'3 (0-0.9); MONOCYTES % (AUTO) 3.8 % (2-12); NEUTROPHILS # (AUTO) 16.7 X10'3 (1.8-7.7); NEUTROPHILS % (AUTO) 93.1 % (42-75); PLATELET COUNT 233 X10'3 (140-440); RED BLOOD COUNT 4.22 X10'6 (4.20-5.60); RED CELL DISTRIBUTION WIDTH 15.3 % (11.5-14.5); WHITE BLOOD COUNT 17.9 X10'3 (4.5-11.0)
[2017-08-27 06:38] LABS: ALANINE AMINOTRANSFERASE 38 U/L (12-78); ALBUMIN 2.3 G/DL (3.4-5.0); ALBUMIN/GLOBULIN RATIO 0.7 (1.1-1.5); ALKALINE PHOSPHATASE 54 IU/L (46-116); ANION GAP 11 (8-16); ASPARTATE AMINO TRANSFERASE 19 U/L (10-37); BILIRUBIN,TOTAL 0.3 MG/DL (0.1-1.0); BLOOD UREA NITROGEN 41 MG/DL (7-18); BUN/CREATININE RATIO 45.6 (6.6-38.0); CALCIUM 9.1 MG/DL (8.5-10.1); CHLORIDE 107 MMOL/L (99-107); GLUCOSE 192 MG/DL (70-104); POTASSIUM 4.4 MMOL/L (3.5-5.1); SODIUM 145 MMOL/L (135-145); TOTAL CARBON DIOXIDE 27.2 MMOL/L (24-32); TOTAL PROTEIN 5.7 G/DL (6.4-8.2); eGFR 63 ML/MIN
[2017-08-27 07:16] LABS: PLATELET ESTIMATE NORMAL; TOTAL CELLS COUNTED 100
[2017-08-27 07:17] LABS: ANISOCYTOSIS FEW; TOXIC GRANULATION 1+
[2017-08-27] MEDS: docusate sodium 100mg/10ml UD cup PO SCH ×2 (07:42→21:07)
[2017-08-27] MEDS: pantoprazole 40 MG vial IV SCH (07:42)
[2017-08-27] MEDS: atorvastatin 10mg tablet PO SCH (07:42)
[2017-08-27] MEDS: lisinopril 5mg tablet PO SCH (07:42)
[2017-08-27] MEDS: lactobacillus rhamnosus 10,000 MMU CELLS/CAPSULE PO SCH ×2 (07:43→21:07)
[2017-08-27] MEDS: ascorbic acid 500mg tablet PO SCH (07:43)
[2017-08-27] MEDS: enoxaparin 40mg/0.4ml syringe SUBCUT SCH (07:44)
[2017-08-27] MEDS: aspirin 81mg tab.chew PO SCH (08:12)
[2017-08-27] MEDS: vancomycin/NS 1 GM ADD-VANTAGE 250 ML IV SCH ×3 (09:00→21:11)
[2017-08-27] MEDS: sodium chloride 0.45% 1,000 ML IV SCH (20:20)
[2017-08-27] MEDS: insulin glargine (Lantus) pen - multi-dose SQ SCH (21:18)
[2017-08-28] VITALS (24 sets, daily range): BP systolic 106–165; BP diastolic 61–83
[2017-08-28] MEDS: ipratropium/albuterol 3ml nebule NEB SCH ×4 (02:31→20:48)
[2017-08-28] MEDS: methylPREDNISolone sod succ/PF 40mg inj. IV SCH ×3 (02:50→19:44)
[2017-08-28] MEDS: mineral oil/petrolatum ophthal oint EACHEYE SCH ×4 (02:50→19:45)
[2017-08-28] MEDS: FENTANYL-0.9 % NACL/PF 100 ML IV PRN (02:51)
[2017-08-28] MEDS: insulin regular, human vial - multi-dose SQ SCH ×4 (02:54→19:49)
[2017-08-28 04:26] LABS: ABG BASE EXCESS 0.9 mmol/L (-2.0-3.0); ABG HCO3 25.3 mmol/L (22.0-26.0); ABG OXYGEN SATURATION 94.9 % (95-98); ABG PCO2 (T) 39.1 mmHg (32.0-45.0); ABG PH (T) 7.428 (7.350-7.450); ABG PO2 (T) 77.2 mmHg (83-108); ALLEN'S TEST Positive; FCOHb 0.3 % (0.5-1.5); FMetHb 0.1 % (0.3-1.12); FO2Hb 94.5 % (94-100); MINUTE VOLUME 13 L/min; PATIENT TEMPERATURE 36.8; PEEP 5 cm H2O; RESPIRATORY RATE 18 b/min; RESPIRATORY RATE (OBSERVED) 27 b/min; TIDAL VOLUME 400 mL; TOTAL HEMOGLOBIN 12.7 G/dl (12.0-16.0)
[2017-08-28] MEDS: midazolam 100mg in NS 100ml 100 ML IV PRN (04:54)
[2017-08-28] MEDS: dexmedetomidin/NS 400mcg/100ml 100 ML IV SCH ×2 (04:54→17:45)
[2017-08-28 05:17] LABS: BASOPHILS # (AUTO) 0.1 X10'3 (0-0.2); BASOPHILS % (AUTO) 0.3 % (0-1); EOSINOPHILS % (AUTO) 0.1 % (0-6); HEMATOCRIT 35.9 % (35.0-45.0); HEMOGLOBIN 11.9 g/dl (12.0-16.0); LYMPHOCYTES # (AUTO) 0.6 X10'3 (1.1-4.8); LYMPHOCYTES % (AUTO) 3.2 % (21-51); MEAN CORPUSCULAR HEMOGLOBIN 28.6 PG (27.0-31.0); MEAN CORPUSCULAR HGB CONC 33.2 % (33.0-36.5); MEAN CORPUSCULAR VOLUME 86.2 FL (78-98); MEAN PLATELET VOLUME 9.5 FL (7.4-10.4); MONOCYTES # (AUTO) 0.7 X10'3 (0-0.9); MONOCYTES % (AUTO) 3.8 % (2-12); NEUTROPHILS # (AUTO) 17.8 X10'3 (1.8-7.7); NEUTROPHILS % (AUTO) 92.6 % (42-75); PLATELET COUNT 252 X10'3 (140-440); RED BLOOD COUNT 4.16 X10'6 (4.20-5.60); RED CELL DISTRIBUTION WIDTH 15.1 % (11.5-14.5); WHITE BLOOD COUNT 19.2 X10'3 (4.5-11.0)
[2017-08-28 05:32] LABS: ALANINE AMINOTRANSFERASE 32 U/L (12-78); ALBUMIN 2.2 G/DL (3.4-5.0); ALBUMIN/GLOBULIN RATIO 0.7 (1.1-1.5); ALKALINE PHOSPHATASE 51 IU/L (46-116); ANION GAP 7 (8-16); ASPARTATE AMINO TRANSFERASE 13 U/L (10-37); BILIRUBIN,TOTAL 0.4 MG/DL (0.1-1.0); BLOOD UREA NITROGEN 42 MG/DL (7-18); BUN/CREATININE RATIO 53.2 (6.6-38.0); CALCIUM 8.9 MG/DL (8.5-10.1); CHLORIDE 108 MMOL/L (99-107); CREATININE 0.79 MG/DL (0.40-0.90); GLUCOSE 186 MG/DL (70-104); PHOSPHORUS 4.4 MG/DL (2.3-4.5); POTASSIUM 4.4 MMOL/L (3.5-5.1); PREALBUMIN 38.4 MG/DL (19-36); SODIUM 144 MMOL/L (135-145); TOTAL CARBON DIOXIDE 29.5 MMOL/L (24-32); TOTAL PROTEIN 5.4 G/DL (6.4-8.2); eGFR 73 ML/MIN
[2017-08-28 06:05] LABS: ANISOCYTOSIS 1+; PLATELET ESTIMATE NORMAL; TOTAL CELLS COUNTED 100
[2017-08-28] MEDS: atorvastatin 10mg tablet PO SCH (07:34)
[2017-08-28] MEDS: enoxaparin 40mg/0.4ml syringe SUBCUT SCH (07:34)
[2017-08-28] MEDS: [UNRECOGNIZED DRUG - OTHER] IV SCH (07:34)
[2017-08-28] MEDS: LEVOFLOXACIN IV SCH (07:34)
[2017-08-28] MEDS: ascorbic acid 500mg tablet PO SCH (07:35)
[2017-08-28] MEDS: docusate sodium 100mg/10ml UD cup PO SCH ×2 (07:35→19:44)
[2017-08-28] MEDS: aspirin 81mg tab.chew PO SCH (07:35)
[2017-08-28] MEDS: pantoprazole 40 MG vial IV SCH (07:35)
[2017-08-28] MEDS: lactobacillus rhamnosus 10,000 MMU CELLS/CAPSULE PO SCH ×2 (07:35→19:44)
[2017-08-28] MEDS: lisinopril 5mg tablet PO SCH (07:35)
[2017-08-28] MEDS ORDERED: VANCOMYCIN LEVEL IV NR (08:30)
[2017-08-28] MEDS: vancomycin/NS 1 GM ADD-VANTAGE 250 ML IV SCH (09:14)
[2017-08-28] MEDS: furosemide 40mg/4ml inj IV SCH ×2 (11:28→19:44)
[2017-08-28] MEDS: vancomycin inj 1,250 MG in normal saline 250ml IV soln 250 ML IV SCH (20:58)
[2017-08-28] MEDS: insulin glargine (Lantus) pen - multi-dose SQ SCH (20:59)
[2017-08-29] VITALS (24 sets, daily range): BP systolic 102–143; BP diastolic 59–85
[2017-08-29] MEDS: dexmedetomidin/NS 400mcg/100ml 100 ML IV SCH ×4 (00:45→21:32)
[2017-08-29] MEDS: mineral oil/petrolatum ophthal oint EACHEYE SCH ×3 (02:06→14:00)
[2017-08-29] MEDS: insulin regular, human vial - multi-dose SQ SCH ×2 (02:07→08:06)
[2017-08-29] MEDS: ipratropium/albuterol 3ml nebule NEB SCH ×4 (02:30→19:13)
[2017-08-29 03:16] LABS: ABG BASE EXCESS 5.7 mmol/L (-2.0-3.0); ABG HCO3 30.4 mmol/L (22.0-26.0); ABG OXYGEN SATURATION 93.9 % (95-98); ABG PCO2 (T) 44.2 mmHg (32.0-45.0); ABG PH (T) 7.455 (7.350-7.450); ABG PO2 (T) 71.9 mmHg (83-108); ALLEN'S TEST Positive; FCOHb 0.2 % (0.5-1.5); FMetHb 0.1 % (0.3-1.12); FO2Hb 93.6 % (94-100); MINUTE VOLUME 11 L/min; PATIENT TEMPERATURE 36.9; PEEP 5 cm H2O; RESPIRATORY RATE 0 b/min; RESPIRATORY RATE (OBSERVED) 22 b/min; TIDAL VOLUME 450 mL; TOTAL HEMOGLOBIN 13.2 G/dl (12.0-16.0)
[2017-08-29 05:42] LABS: BASOPHILS % (AUTO) 0.1 % (0-1); EOSINOPHILS # (AUTO) 0.1 X10'3 (0-0.9); EOSINOPHILS % (AUTO) 0.4 % (0-6); HEMATOCRIT 35.3 % (35.0-45.0); LYMPHOCYTES # (AUTO) 0.7 X10'3 (1.1-4.8); LYMPHOCYTES % (AUTO) 3.6 % (21-51); MEAN CORPUSCULAR HEMOGLOBIN 28.8 PG (27.0-31.0); MEAN CORPUSCULAR HGB CONC 33.9 % (33.0-36.5); MEAN CORPUSCULAR VOLUME 85.1 FL (78-98); MEAN PLATELET VOLUME 9.3 FL (7.4-10.4); MONOCYTES # (AUTO) 0.9 X10'3 (0-0.9); MONOCYTES % (AUTO) 4.3 % (2-12); NEUTROPHILS # (AUTO) 18.6 X10'3 (1.8-7.7); NEUTROPHILS % (AUTO) 91.6 % (42-75); PLATELET COUNT 255 X10'3 (140-440); RED BLOOD COUNT 4.15 X10'6 (4.20-5.60); RED CELL DISTRIBUTION WIDTH 15.2 % (11.5-14.5); WHITE BLOOD COUNT 20.3 X10'3 (4.5-11.0)
[2017-08-29 06:04] LABS: ALANINE AMINOTRANSFERASE 37 U/L (12-78); ALBUMIN 2.2 G/DL (3.4-5.0); ALBUMIN/GLOBULIN RATIO 0.7 (1.1-1.5); ALKALINE PHOSPHATASE 49 IU/L (46-116); ANION GAP 8 (8-16); ASPARTATE AMINO TRANSFERASE 12 U/L (10-37); BILIRUBIN,TOTAL 0.4 MG/DL (0.1-1.0); BLOOD UREA NITROGEN 48 MG/DL (7-18); BUN/CREATININE RATIO 55.2 (6.6-38.0); CALCIUM 8.6 MG/DL (8.5-10.1); CHLORIDE 104 MMOL/L (99-107); CREATININE 0.87 MG/DL (0.40-0.90); GLUCOSE 164 MG/DL (70-104); MAGNESIUM 2.1 MG/DL (1.5-2.4); PHOSPHORUS 4.5 MG/DL (2.3-4.5); POTASSIUM 3.9 MMOL/L (3.5-5.1); SODIUM 143 MMOL/L (135-145); TOTAL PROTEIN 5.3 G/DL (6.4-8.2); eGFR 65 ML/MIN
[2017-08-29] MEDS: lactobacillus rhamnosus 10,000 MMU CELLS/CAPSULE PO SCH ×2 (07:32→19:30)
[2017-08-29] MEDS: ascorbic acid 500mg tablet PO SCH (07:32)
[2017-08-29] MEDS: atorvastatin 10mg tablet PO SCH (07:32)
[2017-08-29] MEDS: methylPREDNISolone sod succ/PF 40mg inj. IV SCH ×2 (07:33→20:11)
[2017-08-29] MEDS: lisinopril 5mg tablet PO SCH (07:33)
[2017-08-29] MEDS: aspirin 81mg tab.chew PO SCH (07:33)
[2017-08-29] MEDS: furosemide 40mg/4ml inj IV SCH ×2 (07:33→20:11)
[2017-08-29] MEDS: docusate sodium 100mg/10ml UD cup PO SCH ×2 (07:33→19:30)
[2017-08-29] MEDS: pantoprazole 40 MG vial IV SCH (07:33)
[2017-08-29] MEDS: enoxaparin 40mg/0.4ml syringe SUBCUT SCH (07:34)
[2017-08-29] MEDS: [UNRECOGNIZED DRUG - OTHER] IV SCH (08:08)
[2017-08-29] MEDS: LEVOFLOXACIN IV SCH (08:08)
[2017-08-29] MEDS: vancomycin inj 1,250 MG in normal saline 250ml IV soln 250 ML IV SCH ×2 (10:45→21:42)
[2017-08-29] MEDS: insulin Lispro (HumaLOG) vial - multi-dose SQ SCH (15:30)
[2017-08-29] MEDS: insulin glargine (Lantus) pen - multi-dose SQ SCH (20:26)
[2017-08-30] VITALS (20 sets, daily range): BP systolic 100–160; BP diastolic 57–84
[2017-08-30 03:13] LABS: BASOPHILS # (AUTO) 0.1 X10'3 (0-0.2); BASOPHILS % (AUTO) 0.4 % (0-1); EOSINOPHILS # (AUTO) 0.2 X10'3 (0-0.9); EOSINOPHILS % (AUTO) 0.9 % (0-6); HEMATOCRIT 37.2 % (35.0-45.0); HEMOGLOBIN 12.9 g/dl (12.0-16.0); LYMPHOCYTES # (AUTO) 0.7 X10'3 (1.1-4.8); LYMPHOCYTES % (AUTO) 3.3 % (21-51); MEAN CORPUSCULAR HEMOGLOBIN 29.7 PG (27.0-31.0); MEAN CORPUSCULAR HGB CONC 34.7 % (33.0-36.5); MEAN CORPUSCULAR VOLUME 85.7 FL (78-98); MEAN PLATELET VOLUME 9.2 FL (7.4-10.4); MONOCYTES # (AUTO) 1.1 X10'3 (0-0.9); MONOCYTES % (AUTO) 5.3 % (2-12); NEUTROPHILS # (AUTO) 19.5 X10'3 (1.8-7.7); NEUTROPHILS % (AUTO) 90.1 % (42-75); PLATELET COUNT 281 X10'3 (140-440); RED BLOOD COUNT 4.33 X10'6 (4.20-5.60); RED CELL DISTRIBUTION WIDTH 14.3 % (11.5-14.5); WHITE BLOOD COUNT 21.6 X10'3 (4.5-11.0)
[2017-08-30 03:36] LABS: ALANINE AMINOTRANSFERASE 39 U/L (12-78); ALBUMIN 2.4 G/DL (3.4-5.0); ALBUMIN/GLOBULIN RATIO 0.8 (1.1-1.5); ALKALINE PHOSPHATASE 54 IU/L (46-116); ANION GAP 4 (8-16); ASPARTATE AMINO TRANSFERASE 15 U/L (10-37); BILIRUBIN,TOTAL 0.5 MG/DL (0.1-1.0); BLOOD UREA NITROGEN 48 MG/DL (7-18); BUN/CREATININE RATIO 53.3 (6.6-38.0); CALCIUM 8.8 MG/DL (8.5-10.1); CHLORIDE 105 MMOL/L (99-107); GLUCOSE 158 MG/DL (70-104); MAGNESIUM 2.3 MG/DL (1.5-2.4); POTASSIUM 4.3 MMOL/L (3.5-5.1); SODIUM 147 MMOL/L (135-145); TOTAL CARBON DIOXIDE 38.2 MMOL/L (24-32); TOTAL PROTEIN 5.5 G/DL (6.4-8.2); eGFR 63 ML/MIN
[2017-08-30] MEDS: ipratropium/albuterol 3ml nebule NEB SCH ×4 (03:46→20:22)
[2017-08-30] MEDS: dexmedetomidin/NS 400mcg/100ml 100 ML IV SCH (03:58)
[2017-08-30] MEDS ORDERED: VANCOMYCIN LEVEL IV NR ×2 (08:30→20:30)
[2017-08-30] MEDS: [UNRECOGNIZED DRUG - OTHER] IV SCH (08:31)
[2017-08-30] MEDS: LEVOFLOXACIN IV SCH (08:31)
[2017-08-30] MEDS: methylPREDNISolone sod succ/PF 40mg inj. IV SCH (08:35)
[2017-08-30] MEDS: furosemide 40mg/4ml inj IV SCH ×2 (08:35→20:03)
[2017-08-30] MEDS: pantoprazole 40 MG vial IV SCH (08:35)
[2017-08-30] MEDS: enoxaparin 40mg/0.4ml syringe SUBCUT SCH (08:36)
[2017-08-30] MEDS: vancomycin inj 1,250 MG in normal saline 250ml IV soln 250 ML IV SCH (09:54)
[2017-08-30] MEDS ORDERED: lactulose 20gm/30ml cup CORPAK PRN (10:30)
[2017-08-30] MEDS: aspirin 81mg tab.chew PO SCH (10:44)
[2017-08-30] MEDS: lactobacillus rhamnosus 10,000 MMU CELLS/CAPSULE PO SCH ×2 (10:45→20:22)
[2017-08-30] MEDS: ascorbic acid 500mg tablet PO SCH (10:45)
[2017-08-30] MEDS: docusate sodium 100mg/10ml UD cup PO SCH ×2 (10:45→20:00)
[2017-08-30] MEDS: atorvastatin 10mg tablet PO SCH (10:45)
[2017-08-30 11:07] LABS: TOTAL CELLS COUNTED 100
[2017-08-30 11:08] LABS: PLATELET ESTIMATE NORMAL
[2017-08-30] MEDS: lisinopril 5mg tablet PO SCH (11:12)
[2017-08-30] MEDS: piperacillin/tazo 3.375gm/50ml 50 ML IV SCH ×2 (14:18→20:39)
[2017-08-30] MEDS: insulin regular, human vial - multi-dose SQ SCH (14:57)
[2017-08-30] MEDS: ALPRAZolam 0.5mg tablet PO PRN (17:33)
[2017-08-30] MEDS: insulin glargine (Lantus) pen - multi-dose SQ SCH (21:22)
[2017-08-30] MEDS ORDERED: vancomycin inj 1,000 MG in normal saline 250ml IV soln 250 ML IV SCH (21:36)
[2017-08-30] MEDS: vancomycin/NS 1 GM ADD-VANTAGE 250 ML IV SCH (21:59)
[2017-08-31 03:00] VITALS: BP 136/82
[2017-08-31] MEDS: piperacillin/tazo 3.375gm/50ml 50 ML IV SCH ×4 (03:51→20:05)
[2017-08-31] MEDS: ipratropium/albuterol 3ml nebule NEB SCH ×4 (04:19→20:14)
[2017-08-31 05:30] VITALS: BP 167/76
[2017-08-31] MEDS: docusate sodium 100mg/10ml UD cup PO SCH ×2 (08:00→20:05)
[2017-08-31] MEDS: enoxaparin 40mg/0.4ml syringe SUBCUT SCH (08:30)
[2017-08-31] MEDS: pantoprazole 40 MG vial IV SCH (08:30)
[2017-08-31] MEDS: furosemide 40mg/4ml inj IV SCH ×2 (08:31→20:05)
[2017-08-31] MEDS: vancomycin/NS 1 GM ADD-VANTAGE 250 ML IV SCH ×2 (09:00→21:51)
[2017-08-31 10:39] LABS: BASOPHILS # (AUTO) 0.1 X10'3 (0-0.2); BASOPHILS % (AUTO) 0.5 % (0-1); EOSINOPHILS # (AUTO) 0.8 X10'3 (0-0.9); EOSINOPHILS % (AUTO) 3.5 % (0-6); HEMATOCRIT 43.6 % (35.0-45.0); HEMOGLOBIN 14.3 g/dl (12.0-16.0); LYMPHOCYTES # (AUTO) 1.2 X10'3 (1.1-4.8); LYMPHOCYTES % (AUTO) 5.5 % (21-51); MEAN CORPUSCULAR HEMOGLOBIN 28.6 PG (27.0-31.0); MEAN CORPUSCULAR HGB CONC 32.8 % (33.0-36.5); MEAN CORPUSCULAR VOLUME 87.1 FL (78-98); MEAN PLATELET VOLUME 9.7 FL (7.4-10.4); MONOCYTES # (AUTO) 1.3 X10'3 (0-0.9); MONOCYTES % (AUTO) 5.9 % (2-12); NEUTROPHILS # (AUTO) 18.8 X10'3 (1.8-7.7); NEUTROPHILS % (AUTO) 84.6 % (42-75); PLATELET COUNT 319 X10'3 (140-440); RED BLOOD COUNT 5.01 X10'6 (4.20-5.60); RED CELL DISTRIBUTION WIDTH 15.3 % (11.5-14.5); WHITE BLOOD COUNT 22.2 X10'3 (4.5-11.0)
[2017-08-31] MEDS: insulin regular, human vial - multi-dose SQ SCH (10:39)
[2017-08-31 10:53] LABS: ALANINE AMINOTRANSFERASE 60 U/L (12-78); ALBUMIN 2.7 G/DL (3.4-5.0); ALBUMIN/GLOBULIN RATIO 0.7 (1.1-1.5); ALKALINE PHOSPHATASE 68 IU/L (46-116); ANION GAP 7 (8-16); ASPARTATE AMINO TRANSFERASE 31 U/L (10-37); BLOOD UREA NITROGEN 38 MG/DL (7-18); BUN/CREATININE RATIO 30.4 (6.6-38.0); CALCIUM 9.1 MG/DL (8.5-10.1); CHLORIDE 101 MMOL/L (99-107); CREATININE 1.25 MG/DL (0.40-0.90); GLUCOSE 145 MG/DL (70-104); MAGNESIUM 2.4 MG/DL (1.5-2.4); POTASSIUM 3.2 MMOL/L (3.5-5.1); PREALBUMIN 46.2 MG/DL (19-36); SODIUM 147 MMOL/L (135-145); TOTAL PROTEIN 6.4 G/DL (6.4-8.2); eGFR 43 ML/MIN
[2017-08-31 10:55] LABS: VANCOMYCIN,TROUGH 23.4 UG/ML (6.0-14.0)
[2017-08-31 11:00] VITALS: BP 122/71
[2017-08-31 11:08] LABS: PLATELET ESTIMATE NORMAL; TOTAL CELLS COUNTED 100
[2017-08-31] MEDS: ascorbic acid 500mg tablet PO SCH (11:37)
[2017-08-31] MEDS: lactobacillus rhamnosus 10,000 MMU CELLS/CAPSULE PO SCH ×2 (11:37→20:05)
[2017-08-31] MEDS: aspirin 81mg tab.chew PO SCH (11:38)
[2017-08-31] MEDS: atorvastatin 10mg tablet PO SCH (11:38)
[2017-08-31] MEDS: lisinopril 5mg tablet PO SCH (11:38)
[2017-08-31] MEDS: prednisone 10mg tablet PO SCH (11:38)
[2017-08-31] MEDS ORDERED: potassium Cl 20 mEq SR tablet PO PRN ×3 (12:15→13:08)
[2017-08-31] MEDS ORDERED: potassium Cl oral solution 20 MEQ/15 ML PO PRN ×2 (12:27)
[2017-08-31] MEDS: LORazepam 1 MG tablet PO PRN (13:23)
[2017-08-31 15:00] VITALS: BP 132/69
[2017-08-31 18:00] VITALS: BP 155/77
[2017-08-31] MEDS: insulin glargine (Lantus) pen - multi-dose SQ SCH (21:56)
[2017-08-31 22:00] VITALS: BP 144/65
[2017-09-01 02:00] VITALS: BP 144/79
[2017-09-01] MEDS: piperacillin/tazo 3.375gm/50ml 50 ML IV SCH ×4 (02:15→21:03)
[2017-09-01] MEDS: ipratropium/albuterol 3ml nebule NEB SCH ×4 (03:45→20:39)
[2017-09-01 05:30] VITALS: BP 139/70
[2017-09-01 06:52] LABS: BASOPHILS % (AUTO) 0 % (0-1); EOSINOPHILS # (AUTO) 0.6 X10'3 (0-0.9); EOSINOPHILS % (AUTO) 2.8 % (0-6); HEMATOCRIT 40.1 % (35.0-45.0); HEMOGLOBIN 13.6 g/dl (12.0-16.0); LYMPHOCYTES # (AUTO) 1.5 X10'3 (1.1-4.8); LYMPHOCYTES % (AUTO) 7.2 % (21-51); MEAN CORPUSCULAR HEMOGLOBIN 29.2 PG (27.0-31.0); MEAN CORPUSCULAR HGB CONC 33.9 % (33.0-36.5); MEAN CORPUSCULAR VOLUME 86.3 FL (78-98); MEAN PLATELET VOLUME 9.3 FL (7.4-10.4); MONOCYTES # (AUTO) 1.1 X10'3 (0-0.9); MONOCYTES % (AUTO) 5.4 % (2-12); NEUTROPHILS # (AUTO) 18.1 X10'3 (1.8-7.7); NEUTROPHILS % (AUTO) 84.6 % (42-75); PLATELET COUNT 291 X10'3 (140-440); RED BLOOD COUNT 4.65 X10'6 (4.20-5.60); RED CELL DISTRIBUTION WIDTH 15.2 % (11.5-14.5); WHITE BLOOD COUNT 21.4 X10'3 (4.5-11.0)
[2017-09-01 07:15] LABS: ALANINE AMINOTRANSFERASE 62 U/L (12-78); ALBUMIN 2.7 G/DL (3.4-5.0); ALBUMIN/GLOBULIN RATIO 0.8 (1.1-1.5); ALKALINE PHOSPHATASE 59 IU/L (46-116); ANION GAP 8 (8-16); ASPARTATE AMINO TRANSFERASE 25 U/L (10-37); BILIRUBIN,TOTAL 0.8 MG/DL (0.1-1.0); BLOOD UREA NITROGEN 33 MG/DL (7-18); BUN/CREATININE RATIO 28.7 (6.6-38.0); CALCIUM 8.7 MG/DL (8.5-10.1); CHLORIDE 105 MMOL/L (99-107); CREATININE 1.15 MG/DL (0.40-0.90); GLUCOSE 123 MG/DL (70-104); MAGNESIUM 2.6 MG/DL (1.5-2.4); POTASSIUM 3.2 MMOL/L (3.5-5.1); SODIUM 151 MMOL/L (135-145); TOTAL CARBON DIOXIDE 37.9 MMOL/L (24-32); eGFR 47 ML/MIN
[2017-09-01] MEDS: docusate sodium 100mg/10ml UD cup PO SCH ×2 (08:00→20:00)
[2017-09-01] MEDS: furosemide 40mg/4ml inj IV SCH ×2 (08:30→21:04)
[2017-09-01] MEDS: vancomycin/NS 1 GM ADD-VANTAGE 250 ML IV SCH ×2 (08:31→21:57)
[2017-09-01] MEDS: lisinopril 5mg tablet PO SCH (08:53)
[2017-09-01] MEDS: ascorbic acid 500mg tablet PO SCH (08:54)
[2017-09-01] MEDS: prednisone 10mg tablet PO SCH (08:54)
[2017-09-01] MEDS: lactobacillus rhamnosus 10,000 MMU CELLS/CAPSULE PO SCH ×2 (08:54→21:03)
[2017-09-01] MEDS: atorvastatin 10mg tablet PO SCH (08:54)
[2017-09-01] MEDS: aspirin 81mg tab.chew PO SCH (08:54)
[2017-09-01] MEDS: enoxaparin 40mg/0.4ml syringe SUBCUT SCH (08:55)
[2017-09-01] MEDS: potassium Cl 20 mEq SR tablet PO PRN ×3 (08:56→21:55)
[2017-09-01] MEDS: pantoprazole 40 MG vial IV SCH (08:59)
[2017-09-01 11:00] VITALS: BP 118/71
[2017-09-01] MEDS: insulin Lispro (HumaLOG) vial - multi-dose SQ SCH (13:27)
[2017-09-01 15:00] VITALS: BP 127/68
[2017-09-01 18:00] VITALS: BP 130/73
[2017-09-01] MEDS: Protein Smoothie (high protein) 240ml (8oz) cup PO SCH (18:00)
[2017-09-01] MEDS: ALPRAZolam 0.5mg tablet PO PRN (21:03)
[2017-09-01] MEDS: insulin glargine (Lantus) pen - multi-dose SQ SCH (21:53)
[2017-09-01 22:00] VITALS: BP 136/58
[2017-09-02 02:00] VITALS: BP 143/59
[2017-09-02] MEDS: ipratropium/albuterol 3ml nebule NEB SCH ×3 (03:06→15:55)
[2017-09-02] MEDS: piperacillin/tazo 3.375gm/50ml 50 ML IV SCH ×3 (03:08→14:20)
[2017-09-02 06:00] VITALS: BP 120/65
[2017-09-02 06:07] LABS: HEMATOCRIT 43.2 % (35.0-45.0); HEMOGLOBIN 14.3 g/dl (12.0-16.0); MEAN CORPUSCULAR HEMOGLOBIN 28.6 PG (27.0-31.0); MEAN CORPUSCULAR HGB CONC 33.2 % (33.0-36.5); MEAN CORPUSCULAR VOLUME 86.4 FL (78-98); PLATELET COUNT 297 X10'3 (140-440); RED CELL DISTRIBUTION WIDTH 15.2 % (11.5-14.5); WHITE BLOOD COUNT 23.2 X10'3 (4.5-11.0)
[2017-09-02 06:21] LABS: ALANINE AMINOTRANSFERASE 81 U/L (12-78); ALBUMIN/GLOBULIN RATIO 0.8 (1.1-1.5); ALKALINE PHOSPHATASE 65 IU/L (46-116); ANION GAP 10 (8-16); ASPARTATE AMINO TRANSFERASE 32 U/L (10-37); BLOOD UREA NITROGEN 29 MG/DL (7-18); BUN/CREATININE RATIO 24.6 (6.6-38.0); CALCIUM 9.1 MG/DL (8.5-10.1); CHLORIDE 105 MMOL/L (99-107); CREATININE 1.18 MG/DL (0.40-0.90); GLUCOSE 114 MG/DL (70-104); MAGNESIUM 2.7 MG/DL (1.5-2.4); POTASSIUM 3.6 MMOL/L (3.5-5.1); SODIUM 151 MMOL/L (135-145); TOTAL CARBON DIOXIDE 36.4 MMOL/L (24-32); TOTAL PROTEIN 6.8 G/DL (6.4-8.2); eGFR 46 ML/MIN
[2017-09-02 06:57] LABS: PLATELET ESTIMATE NORMAL; TOTAL CELLS COUNTED 100
[2017-09-02 06:58] LABS: ANISOCYTOSIS FEW; POLYCHROMASIA FEW; TARGET CELLS FEW
[2017-09-02] MEDS: aspirin 81mg tab.chew PO SCH (07:34)
[2017-09-02] MEDS: lisinopril 5mg tablet PO SCH (07:34)
[2017-09-02] MEDS: furosemide 40mg/4ml inj IV SCH (07:35)
[2017-09-02] MEDS: pantoprazole 40 MG vial IV SCH (07:35)
[2017-09-02] MEDS: enoxaparin 40mg/0.4ml syringe SUBCUT SCH (07:35)
[2017-09-02] MEDS: lactobacillus rhamnosus 10,000 MMU CELLS/CAPSULE PO SCH (07:35)
[2017-09-02] MEDS: prednisone 10mg tablet PO SCH (07:36)
[2017-09-02] MEDS: atorvastatin 10mg tablet PO SCH (07:36)
[2017-09-02] MEDS: ascorbic acid 500mg tablet PO SCH (07:38)
[2017-09-02] MEDS: docusate sodium 100mg/10ml UD cup PO SCH (07:40)
[2017-09-02] MEDS: Protein Smoothie (high protein) 240ml (8oz) cup PO SCH ×2 (08:00→13:03)
[2017-09-02] MEDS ORDERED: VANCOMYCIN LEVEL IV NR (08:30)
[2017-09-02] MEDS: vancomycin/NS 1 GM ADD-VANTAGE 250 ML IV SCH (09:58)
[2017-09-02] MEDS: ALPRAZolam 0.5mg tablet PO PRN (10:51)
[2017-09-02 11:00] VITALS: BP 104/58
[2017-09-02] MEDS ORDERED: WALKERFR (14:22)
[2017-09-02] MEDS ORDERED: IPRA3AMP9 NEB (14:22)
[2017-09-02 15:00] VITALS: BP 93/62
== END 2017-09-02 16:55 | disposition home or self-care (01) | DRG 870 ==
LOC: ER 09:49 → ED HOLD 14:16 → PCU 3S 17:22 → CICU 2S 08-21 09:59 → ICU 2S 08-21 23:53 → PCU 3S 08-30 18:54
PROVIDERS: ADMIT Internal Medicine; ATTEND Internal Medicine Critical Care Medicine
PROC: 5A1945Z Respiratory Ventilation, 24-96 Consecutive Hours (ICD-10-PCS; principal; 2017-08-21)
PROC: 0BH17EZ Insertion of Endotracheal Airway into Trachea, Via Natural or Artificial Opening (ICD-10-PCS; 2017-08-21)
PROC: 5A1955Z Respiratory Ventilation, Greater than 96 Consecutive Hours (ICD-10-PCS; 2017-08-24)
PROC: 0BH17EZ Insertion of Endotracheal Airway into Trachea, Via Natural or Artificial Opening (ICD-10-PCS; 2017-08-24)
PROC: 5A09357 Assistance with Respiratory Ventilation, Less than 24 Consecutive Hours, Continuous Positive Airway Pressure (ICD-10-PCS; 2017-08-24)
PROC: 02HV33Z Insertion of Infusion Device into Superior Vena Cava, Percutaneous Approach (ICD-10-PCS; 2017-08-28)
PROC: B548ZZA Ultrasonography of Superior Vena Cava, Guidance (ICD-10-PCS; 2017-08-28)
PROC: 5A09357 Assistance with Respiratory Ventilation, Less than 24 Consecutive Hours, Continuous Positive Airway Pressure (ICD-10-PCS; 2017-08-29)
DX: A41.9 Sepsis, unspecified organism (principal); J96.01 Acute respiratory failure with hypoxia; J11.00 Influenza due to unidentified influenza virus with unspecified type of pneumonia; J18.9 Pneumonia, unspecified organism; J44.0 Chronic obstructive pulmonary disease with (acute) lower respiratory infection; J44.1 Chronic obstructive pulmonary disease with (acute) exacerbation; I10 Essential (primary) hypertension; E11.9 Type 2 diabetes mellitus without complications; E78.5 Hyperlipidemia, unspecified; F17.210 Nicotine dependence, cigarettes, uncomplicated; Z28.21 Immunization not carried out because of patient refusal; Z79.899 Other long term (current) drug therapy; Z79.82 Long term (current) use of aspirin; Z82.49 Family history of ischemic heart disease and other diseases of the circulatory system
CPT/HCPCS: 36415; 36569; 36600; 71045; 71250; 74018; 76937; 80053; 80202; 81001; 82570; 82803; 82948; 83036; 83605; 83735; 83880; 83935; 84100; 84132; 84134; 84145; 84300; 84484; 85018; 85025; 85610; 85730; 87040; 87070; 87088; 87502; 87503; 92616; 93005; 93306; 94002; 94003; 94640; 94660; 94760; 96361; 96374; 97110; 97116; 97162; 97530; 99285; A4357; A6213; A6257; A7015; C9113; J1650; J1815; J1940; J1956; J2250; J2270; J2543; J2704; J2920; J2930; J3370; J3480; J3490; J7030; J7070; J7512; P9047

== ENCOUNTER 2018-08-20 08:34 | Outpatient (CLI) | payer MEDICARE, OTHER ==
[~2018-08-20 08:34] MED LIST: ALBU6.7H INH; ASCO500C15 PO; ASPI-611 PO; ATOR10TA87 PO; DIAZ5TAB PO; EST1T PO; IBUP-1984 PO; IPRA3AMP9 NEB; LISI-604 PO; WALKERFR
== END 2018-08-20 23:59 | disposition home or self-care (01) ==
LOC: RT 08:34
PROVIDERS: ATTEND Internal Medicine Critical Care Medicine
DX: J44.9 Chronic obstructive pulmonary disease, unspecified (principal); I10 Essential (primary) hypertension; E11.9 Type 2 diabetes mellitus without complications
CPT/HCPCS: 94618